=== PATIENT | female | born 1950 | race Caucasian/White ===

== ENCOUNTER → 2016-05-29 | Outpatient (CLI) | payer OTHER ==
--- NOTE | 2016-05-30 18:16 | CARD ---
APPROVED REPORT EXAM: Two-dimensional and M-mode echocardiogram with Doppler and color Doppler. Other Information Quality : GoodHR: 86bpm Rhythm : NSR INDICATION Dyspnea Fatigue LV Function: 2D DIMENSIONS Left Atrium(2D)4.3 (1.6-4.0cm)IVSd1.2 (0.7-1.1cm) Aortic Root(2D)2.8 (2.0-3.7cm)LVDd3.9 (3.9-5.9cm) LVOT Diameter2.0 (1.8-2.4cm)PWd1.2 (0.7-1.1cm) LVDs2.8 (2.5-4.0cm)LVEF(%)57.0 (>50%) LEFT VENTRICLE The left ventricle is normal size. There is mild concentric left ventricular hypertrophy. The left ve ntricular systolic function is normal and the ejection fraction is within normal range. The Ejection Fraction is 57 %. There is normal LV segmental wall motion. Left ventricular diastolic function was n ot assessed. RIGHT VENTRICLE The right ventricle is normal size. There is normal right ventricular wall thickness. The right ventr icular systolic function is normal. ATRIA The left atrium size is normal. The right atrium size is normal. AORTIC VALVE The aortic valve is mildly thickened. The aortic valve is trileaflet. There is no significant aortic valvular stenosis. MITRAL VALVE Mitral annular calcification is mild. The mitral valve leaflets are thickened. There is no evidence o f mitral valve prolapse. There is no mitral valve stenosis. TRICUSPID VALVE There is no tricuspid valve stenosis. PULMONIC VALVE There is no pulmonic valvular stenosis. GREAT VESSELS The aortic root is normal in size. The ascending aorta is normal in size. The pulmonary artery is nor mal. The IVC is normal in size and collapses >50% with inspiration. PERICARDIAL EFFUSION There is no evidence of significant pericardial effusion. Critical Notification Critical Value: No <Conclusion> The left ventricular systolic function is normal and the ejection fraction is within normal range. The Ejection Fraction is 57 %. There is mild concentric left ventricular hypertrophy. Left ventricular diastolic function was not assessed. The right ventricle is normal size. The left atrium size is normal. The right atrium size is normal. The aortic valve is mildly thickened. The aortic valve is trileaflet. Mitral annular calcification is mild. The mitral valve leaflets are thickened. The aortic root is normal in size. There is no evidence of significant pericardial effusion. This was a limited echocardiogram
== END | disposition home or self-care (01) ==
LOC: ECHO 12:49
PROVIDERS: ATTEND Internal Medicine Cardiovascular Disease
DX: C50.311 Malignant neoplasm of lower-inner quadrant of right female breast (principal); I31.3 Pericardial effusion (noninflammatory); I51.7 Cardiomegaly; R06.00 Dyspnea, unspecified
CPT/HCPCS: 93308

== ENCOUNTER → 2016-05-31 | Outpatient (CLI) | payer OTHER ==
--- NOTE | 2016-05-31 12:20 | RAD ---
Portable chest, 05/31/2016: History: Check Port-A-Cath placement No previous chest radiographs are available at this time for comparison purposes. A left Port-A-Cath has been inserted with its tip lying in the superior vena cava, directed inferolaterally. The heart size and pulmonary vascularity are within normal limits. There is minimal linear atelectasis or scarring in the left base. The lungs are otherwise clear. There is no evidence of pleural fluid or pneumothorax. IMPRESSION: 1. The left Port-A-Cath extends into the superior vena cava. 2. Minimal left basilar linear atelectasis or scarring.
== END | disposition home or self-care (01) ==
LOC: DXRAD 10:00
PROVIDERS: ATTEND Surgery
DX: J98.11 Atelectasis (principal)
CPT/HCPCS: 71010

== ENCOUNTER → 2017-04-24 | Outpatient (CLI) | payer OTHER ==
--- NOTE | 2017-04-24 10:38 | RAD ---
DATE: April 24, 2017 EXAM: MAMMO MARTINE DIAG LT. HISTORY: History of right breast cancer treated with a right mastectomy in 2017. No new symptoms on the left side. COMPARISON: 2012 and 2016 This study was interpreted with the benefit of Computerized Aided Detection (CAD). 2-D digital mammographic views of the left breast were performed in the CC and MLO projections. 3-D digital tomosynthesis of the left breast were performed in the CC and MLO projections and reviewed on a computer workstation. FINDINGS: The left breast parenchyma is scattered and mildly dense. There are no new dominant suspicious masses, suspicious microcalcifications or evidence of architectural distortion. IMPRESSION: No mammographic indicators for malignancy on the left side. BI-RADS CATEGORY: 1 NEGATIVE RECOMMENDED FOLLOW-UP: 12M 12 MONTH FOLLOW-UP PQRS compliance statement: Patient information was entered into a reminder system with a target due date April 25, 2018 for the next mammogram. Mammography is a sensitive method for finding small breast cancers, but it does not detect them all and is not a substitute for careful clinical examination. A negative mammogram does not negate a clinically suspicious finding and should not result in delay in biopsying a clinically suspicious abnormality. "Our facility is accredited by the [employer] Mammography [employer]." The patient's breast density may affect the ability of mammography to detect breast cancer. There are 4 categories of breast density, A, B, C and D. Breast density A means that most of the breast tissue is replaced with adipose tissue and therefore is not dense. Breast density B means that the breast tissue is mildly dense and scattered. Breast density C means that the breast tissue is heterogeneously dense. Breast density D means that the breast tissue is very dense. Breast densities especially C and D may decrease the sensitivity of mammography to detect breast cancer. Therefore, the patient may benefit from 3-D breast mammography (3D breast tomography) as a part of their screening mammogram. Insurance may or may not pay for this additional imaging. The patient's breast density based on today's mammogram is category B.
== END | disposition home or self-care (01) ==
LOC: MAMMO 08:32
PROVIDERS: ATTEND Internal Medicine Hematology & Oncology
DX: C50.311 Malignant neoplasm of lower-inner quadrant of right female breast (principal); Z17.0 Estrogen receptor positive status [ER+]; Z85.3 Personal history of malignant neoplasm of breast
CPT/HCPCS: 77065; G0279; 77061

== ENCOUNTER → 2018-08-01 | Outpatient (CLI) | payer OTHER ==
--- NOTE | 2018-08-01 14:30 | RAD ---
DATE: 08/01/2018 EXAM: MAMMO MARTINE DIAG LT HISTORY: Previous right breast cancer COMPARISON: 04/24/2017 This study was interpreted with the benefit of Computerized Aided Detection (CAD). Breast Density: SCATTERED The breast parenchyma shows scattered fibroglandular densities. Breast parenchyma level B. FINDINGS: 2-D and 3-D tomosynthesis imaging was performed in CC and MLO projections. No new or enlarging breast densities are seen. There are unchanged microcalcifications. IMPRESSION: Stable left mammograms without evidence of malignancy. BI-RADS CATEGORY: 2 BENIGN FINDING(S) RECOMMENDED FOLLOW-UP: 12M 12 MONTH FOLLOW-UP PQRS compliance statement: Patient information was entered into a reminder system with a target due date for the next mammogram. Mammography is a sensitive method for finding small breast cancers, but it does not detect them all and is not a substitute for careful clinical examination. A negative mammogram does not negate a clinically suspicious finding and should not result in delay in biopsying a clinically suspicious abnormality. "Our facility is accredited by the [employer] Mammography [employer]."
== END | disposition home or self-care (01) ==
LOC: MAMMO 13:45
PROVIDERS: ATTEND Internal Medicine Hematology & Oncology
DX: N64.89 Other specified disorders of breast (principal); Z17.0 Estrogen receptor positive status [ER+]; Z85.3 Personal history of malignant neoplasm of breast
CPT/HCPCS: 77065; G0279; 77061

== ENCOUNTER → 2018-11-06 | Outpatient (CLI) | payer OTHER ==
--- NOTE | 2018-11-06 17:54 | RAD ---
CLINICAL HISTORY: Difficulty with swallowing, mass like sensation. COMPARISON: None available. TECHNIQUE: Ultrasound examination of the thyroid gland was performed FINDINGS: Changes of prior right thyroidectomy. Residual right thyroid measures 1.4 x 0.6 x 0.8 cm. A 0.6 x 0.5 x 0.5 cm hypoechoic thyroid nodule is seen in the residual right thyroid tissue. The left thyroid measures 5.5 x 2 x 2 cm. A solid 1 x 1.5 x 1 cm iso to hypoechoic nodule is seen in the interpolar region with regions of low echogenicity centrally. A 2.3 x 2 x 1.6 cm mixed solid and cystic lesion is seen within the lower pole of the left thyroid gland. Isthmus measures 0.3 cm in thickness. IMPRESSION: 1. The lower pole left thyroid nodule is Ti rads 4, given size FNA is recommended. 2. The interpolar left thyroid nodule is Ti rads 3, given size follow-up is recommended. 3. Changes of right thyroidectomy with small volume residual thyroid tissue containing a nondominant nodule Electronically signed by: Lowell Garcia MD (11/06/2018 5:51 PM) [facility]
== END | disposition home or self-care (01) ==
LOC: US 10:47
PROVIDERS: ATTEND Internal Medicine Hematology & Oncology
DX: C50.311 Malignant neoplasm of lower-inner quadrant of right female breast (principal); E04.2 Nontoxic multinodular goiter; E89.0 Postprocedural hypothyroidism; Z17.0 Estrogen receptor positive status [ER+]
CPT/HCPCS: 76536

== ENCOUNTER → 2019-08-04 | Outpatient (CLI) | payer MEDICARE, OTHER ==
--- NOTE | 2019-08-06 17:23 | RAD ---
DATE: 08/04/2019 12:45 PM EXAM: MAMMO MARTINE SCREEN LT HISTORY: Screening history of right mastectomy. COMPARISON: 08/01/2018, 04/24/2017 Left CC and MLO views of the breast were performed. Breast tomosynthesis was performed in CC and MLO projections. This study was interpreted with the benefit of Computerized Aided Detection (CAD). FINDINGS: Breast Density: SCATTERED The breast parenchyma shows scattered fibroglandular densities. Breast parenchyma level B No suspicious masses, microcalcifications or architectural distortion is present to suggest malignancy in the breast. The visualized axilla is unremarkable. IMPRESSION: No mammographic evidence of malignancy. BI-RADS CATEGORY: 1 NEGATIVE RECOMMENDED FOLLOW-UP: 12M 12 MONTH FOLLOW-UP Annual screening mammography is recommended, unless clinically indicated sooner based on symptoms or change in physical exam. PQRS compliance statement: Patient information was entered into a reminder system with a target due date 08/04/2020 for the next mammogram. Mammography is a sensitive method for finding small breast cancers, but it does not detect them all and is not a substitute for careful clinical examination. A negative mammogram does not negate a clinically suspicious finding and should not result in delay in biopsying a clinically suspicious abnormality. "Our facility is accredited by the [employer] Mammography Program."
== END | disposition home or self-care (01) ==
LOC: MAMMO 12:34
PROVIDERS: ATTEND Family Medicine
DX: Z12.31 Encounter for screening mammogram for malignant neoplasm of breast (principal); Z85.3 Personal history of malignant neoplasm of breast
CPT/HCPCS: 77061; 77063; 77067

== ENCOUNTER → 2020-09-19 | Outpatient (CLI) | payer MEDICARE, OTHER ==
--- NOTE | 2020-09-19 11:39 | RAD ---
EXAM: Neck sonogram. HISTORY: Neck swelling. Thyroid cancer. Thyroidectomy. TECHNIQUE: Sonographic imaging of the neck at the sites of palpable concern was performed. COMPARISON: 11/06/2018. FINDINGS: There is a benign-appearing lymph node with thin cortex and fatty hilum measuring 1.4 cm in long axis at the site of palpable concern within the superior right neck. There is a circumscribed h ypoechoic nodule with internal echogenic focus within the mid right neck at a second site of palpable concern measuring 1.4 x 0.9 x 0.5 cm. This demonstrates internal blood flow. IMPRESSION: 1. 1.4 cm benign lymph node within the superior right neck at a site of palpable concern. 2. 1.4 cm hypoechoic nodule with internal blood flow within the mid right neck and a site of concern. This may be a morphologically abnormal lymph node. Given a history of thyroid cancer, sonographic gu ided tissue sampling may be indicated for definitive diagnosis. Electronically signed by: Sonya Gifford MD (09/19/2020 11:37 AM) [id number]
== END ==
LOC: US 10:38
PROVIDERS: ATTEND Internal Medicine Hematology & Oncology
DX: C50.911 Malignant neoplasm of unspecified site of right female breast (principal); E04.1 Nontoxic single thyroid nodule
CPT/HCPCS: 76536

== ENCOUNTER → 2020-09-20 | Outpatient (CLI) | payer MEDICARE, OTHER ==
--- NOTE | 2020-09-20 14:34 | RAD ---
EXAM: Left breast diagnostic mammogram with tomosynthesis; left breast sonogram. HISTORY: 70-year-old female with a history of right breast cancer, status post right mastectomy, pres ents with a palpable left breast lump. TECHNIQUE: Full-field digital craniocaudal and mediolateral oblique 2D and 3D tomosynthesis images of the left breast are obtained for evaluation. Computer aided detection was applied. Sonographic imagi ng of the left breast targeted to the region of palpable concern and a region of nodularity in this r egion mammographically was performed. COMPARISON: 08/04/2019, 08/01/2018 BREAST PARENCHYMAL DENSITY: Level B - Scattered fibroglandular densities. FINDINGS: There are a few small benign-appearing circumscribed nodules within the posterior 3:00 posi tion of the left breast, without a clear correlate on prior studies. There is no suspicious finding w ithin the site of palpable concern at the 10:00 to 11:00 positions of the anterior left breast. There are stable areas of asymmetry. There is no suspicious calcification. Sonographic imaging of the left breast demonstrates no suspicious finding within the region of palpab le concern at the 11:00 position 5 cm clinical or within the adjacent retroareolar location. There ar e multiple hypoechoic lesions within the posterior 3:00 position of the left breast measuring up to 5 mm, the appearance of which favors a complicated cysts. These correspond with areas of mammographic nodularity. IMPRESSION: 1. No suspicious mammographic or sonographic correlate for a reported palpable abnormality within the 10:00 to 11:00 position of the anterior left breast. Continued clinical follow-up of palpable abnorm alities is recommended. 2. Multiple new suspected complicated cystic lesions within the posterior lateral left breast measuri ng up to 5 mm. This may be due to the sequela of interval trauma with fat necrosis or a resolving hem atoma. Short-term follow-up is recommended to confirm stability. 3. BI-RADS Category 3: Probably benign finding(s). Short term follow up with a diagnostic left breast mammogram and sonogram in 6 months is recommended. If your mammogram demonstrates that you have dense breast tissue, which could hide abnormalities, and if you have other risk factors for breast cancer that have been identified, you might benefit from s upplemental screening tests that may be suggested by your ordering physician. Dense breast tissue, i n and of itself, is a relatively common condition. This information is not provided to cause undue c oncern, but rather to raise your awareness and to promote discussion with your physician regarding th e presence of other risk factors, in addition to dense breast tissue. A report of your mammography re sults will be sent to you and your physician. You should contact your physician if you have any ques tions or concerns regarding this report. Mammography is a sensitive method for finding small breast cancers, but it does not detect them all a nd is not a substitute for careful clinical examination. A negative mammogram does not negate a clin ically suspicious finding and should not result in delay in biopsying a clinically suspicious abnorma lity. PQRS compliance statement - Patient information was entered into a reminder system with a target due date for the next mammogram. "Our facility is accredited by the [employer] Mammography Program." Electronically signed by: Sonya Gifford MD (09/20/2020 2:32 PM) [id number]
== END ==
LOC: MAMMO 13:09
PROVIDERS: ATTEND Internal Medicine Hematology & Oncology
DX: C50.911 Malignant neoplasm of unspecified site of right female breast (principal); N60.02 Solitary cyst of left breast
CPT/HCPCS: 76642; 77065; G0279; 77061

== ENCOUNTER → 2021-04-20 | Outpatient (CLI) | payer MEDICARE, OTHER ==
--- NOTE | 2021-04-20 14:33 | RAD ---
DIAGNOSTIC LEFT BREAST MAMMOGRAM AND LEFT BREAST ULTRASOUND TECHNIQUE: 3-D and 2-D digital mammography of the left breast in the routine CC and MLO projections. Grayscale and color doppler ultrasound of the area of concern in the left breast. INDICATION: Burning and soreness to touch in the left breast. Additionally short interval follow-up i s recommended of suspected complication cystic lesions posterior lateral left breast. COMPARISON: 09/20/2020, 08/04/2019, 08/01/2018, 04/24/2017 FINDINGS: Breast Density: There are scattered areas of fibroglandular density. Asymmetry anterior left breast present for multiple prior years consistent with a benign process. No suspicious mass, calcification or architectural distortion. Ultrasound of the left breast in the 3:00 radial 9 cm from the nipple demonstrates a benign anechoic cyst which appears more homogeneous compared to prior exam. No abnormalities identified in the area o f concern in the 11:00 radial approximately 5 cm from the nipple. IMPRESSION: 1. No imaging evidence of malignancy. Benign left breast cyst. No abnormality identified to correspo nding to area of pain. ASSESSMENT: BI-RADS 2: Benign. RECOMMENDATION: Routine annual screening mammogram. The facility will notify the patient of the results via mail. Patient information will be entered int o the mammography reminder system with a target recall date for the next mammogram. A reminder letter will be generated by the facility. Electronically signed by: Rafa Pendleton MD (04/20/2021 2:31 PM) [id number]
== END ==
LOC: MAMMO 12:48
PROVIDERS: ATTEND Nurse Practitioner Family
DX: N60.02 Solitary cyst of left breast (principal); Z90.12 Acquired absence of left breast and nipple
CPT/HCPCS: 76642; 77065; G0279; 77061